=== PATIENT | male | born 1955 | race African-American/Black ===

== ENCOUNTER 2018-04-28 17:20 | Inpatient (IN) | payer MEDICARE, MEDICAID ==
[~2018-04-28] VITALS: Ht 186.7 cm; Wt 98.0 kg
[~2018-04-28 17:20] MED LIST: ATORVASTATIN 40 MG; ENALAPRIL 10 MG; GABAPENTIN 300MG; METFORMIN 500 MG; METOPROLOL; REGULAR INSULIN SQ; TRAZODONE 150 MG; TYLENOL WITH CODEINE
[2018-04-28] MEDS ORDERED: MORPHINE SULFATE 4 MG/ML CPJ (NOT FOR IM USE) IV STA (17:55)
[2018-04-28] MEDS ORDERED: SODIUM CHLORIDE 0.9% 250 ML IV ONE (17:55)
[2018-04-28] MEDS ORDERED: ONDANSETRON HCL 4MG/2ML INJ IV STA (17:55)
[2018-04-28 19:25] LABS: BASOPHILS % 0.3 % (0.0-2.0); HEMATOCRIT. 38.2 % (42.0-52.0); LYMPHOCYTES % 4.8 % (20.0-50.0); MEAN CORPUSCULAR HEMOGLOBIN 30.3 pg (28.0-32.0); MEAN CORPUSCULAR VOLUME 89.5 fL (80.0-94.0); MEAN PLATELET VOLUME 9.9 fl (7.4-10.4); MONOCYTES % 9.3 % (2.0-8.0); NEUTROPHILS % 85.6 % (40.0-76.0); PLATELET 189 x1000/uL (130-400); RED BLOOD CELL COUNT 4.27 mill/uL (4.7-6.1); RED CELL DISTRIBUTION WIDTH 13.6 % (11.6-14.6)
[2018-04-28] MEDS ORDERED: MORPHINE SULFATE 2 MG/ML CPJ (NOT FOR IM USE) IV ONE (19:27)
[2018-04-28] MEDS ORDERED: ONDANSETRON HCL 4MG/2ML INJ ONE (19:28)
[2018-04-28 19:31] LABS: INR 1.1; PARTIAL THROMBOPLASTIN TIME 35.7 sec (23.4-31.0); PROTHROMBIN TIME 11.2 sec (9.1-11.1)
[2018-04-28 19:37] LABS: CHLORIDE 95 mEq/L (98-107)
[2018-04-28 19:41] LABS: ETHANOL BLOOD < 10 mg/dL
[2018-04-28 20:00] VITALS: BP 116/77
[2018-04-28] MEDS ORDERED: FUROSEMIDE 20MG/2ML VIAL IVP ONE (20:00)
[2018-04-28 23:48] VITALS: BP 116/72
[2018-04-29] VITALS (7 sets, daily range): BP systolic 94–134; BP diastolic 54–74
[2018-04-29] MEDS ORDERED: DEXTROSE 50% WATER 50ML SYRINGE IV PRN (01:00)
[2018-04-29] MEDS: ACETAMINOPHEN 325MG TABLET PO PRN ×3 (01:26→21:10)
[2018-04-29] MEDS: PIPERACILLIN/TAZ 3.375G PREMIX 50 ML IV SCH ×4 (03:05→21:09)
[2018-04-29] MEDS: VANCOMYCIN 1500MG in DEXTROSE 5% WATER 250ML IV SCH (04:42)
[2018-04-29] MEDS: BLOOD SUGAR DIAGNOSTIC STRIP TEST SCH ×4 (05:56→21:29)
[2018-04-29] MEDS ORDERED: INFLUENZA VIRUS VACCINE(AFLURIA) 0.5ML SYR IM ONE (06:00)
[2018-04-29] MEDS: INSULIN LISPRO 100 UNITS/ML SUBCUT SCH ×4 (06:22→21:25)
[2018-04-29] MEDS: FUROSEMIDE 40MG TABLET PO SCH (09:08)
[2018-04-29] MEDS: CARVEDILOL 3.125 MG TABLET PO SCH ×2 (09:09→21:10)
[2018-04-29] MEDS: METFORMIN HCL 500MG TABLET PO SCH ×2 (09:09→18:01)
[2018-04-29] MEDS: ENALAPRIL 10MG TABLET PO SCH (09:09)
[2018-04-29] MEDS ORDERED: PNEUMOCOCCAL 23-VAL P-SAC VAC 0.5 ML IM ONE (12:00)
[2018-04-29] MEDS: ATORVASTATIN CALCIUM 40MG TABLET PO SCH (21:09)
[2018-04-29] MEDS: INSULIN GLARGINE UD 100 UNITS/ML SYR SUBCUT SCH (21:27)
[2018-04-29] MEDS ORDERED: INSULIN GLARGINE UD 100 UNITS/ML SYR SUBCUT SCH (22:00)
[2018-04-30] VITALS (7 sets, daily range): BP systolic 85–122; BP diastolic 51–76
[2018-04-30] MEDS: PIPERACILLIN/TAZ 3.375G PREMIX 50 ML IV SCH ×4 (02:38→21:24)
[2018-04-30] MEDS: VANCOMYCIN 1500MG in DEXTROSE 5% WATER 250ML IV SCH (04:00)
[2018-04-30] MEDS: BLOOD SUGAR DIAGNOSTIC STRIP TEST SCH ×4 (06:37→21:26)
[2018-04-30] MEDS: INSULIN LISPRO 100 UNITS/ML SUBCUT SCH ×5 (06:37→21:25)
[2018-04-30] MEDS: METFORMIN HCL 500MG TABLET PO SCH (07:09)
[2018-04-30 07:19] LABS: HEMATOCRIT. 36.2 % (42.0-52.0); HEMOGLOBIN. 12.2 g/dL (14.0-18.0); MEAN CORPUSCULAR VOLUME 88.8 fL (80.0-94.0); MEAN PLATELET VOLUME 10.4 fl (7.4-10.4); PLATELET 172 x1000/uL (130-400); RED BLOOD CELL COUNT 4.07 mill/uL (4.7-6.1); RED CELL DISTRIBUTION WIDTH 13.8 % (11.6-14.6)
[2018-04-30] MEDS: CARVEDILOL 3.125 MG TABLET PO SCH ×2 (09:00→21:23)
[2018-04-30] MEDS: ENALAPRIL 10MG TABLET PO SCH (09:00)
[2018-04-30] MEDS: FUROSEMIDE 40MG TABLET PO SCH (10:47)
[2018-04-30] MEDS: INSULIN GLARGINE UD 100 UNITS/ML SYR SUBCUT SCH ×2 (10:49→21:26)
[2018-04-30 13:32] LABS: PLATELET ESTIMATE NORMAL
[2018-04-30] MEDS: SODIUM CHLORIDE 0.9% 1,000 ML IV SCH (17:36)
[2018-04-30 20:27] LABS: CLARITY URINE CLOUDY (CLEAR); COLOR URINE YELLOW (YELLOW); KETONES URINE NEGATIVE (NEGATIVE); LEUKOCYTE ESTERASE URINE NEGATIVE (NEGATIVE); NITRITE URINE POSITIVE (NEGATIVE); OCCULT BLOOD URINE 2+ (NEGATIVE); PROTEIN URINE 2+ (NEGATIVE); UROBILINOGEN URINE 0.2 E.U./dL (0.2-1.0)
[2018-04-30 20:52] LABS: SODIUM URINE RANDOM 61 mEq/L
[2018-04-30 21:01] LABS: METHADONE URINE SCREEN NEGATIVE (NEGATIVE)
[2018-04-30 21:02] LABS: *AMPHETAMINES SCREEN URINE NEGATIVE (NEGATIVE); *BARBITURATES SCREEN URINE NEGATIVE (NEGATIVE); *BENZODIAZEPINES SCREEN URINE NEGATIVE (NEGATIVE); CANNABINOID URINE SCREEN NEGATIVE (NEGATIVE); OPIATES URINE SCREEN PRESUMTIVE POSITIVE (NEGATIVE); PHENCYCLIDINE URINE SCREEN NEGATIVE (NEGATIVE)
[2018-04-30 21:03] LABS: *COCAINE SCREEN URINE PRESUMTIVE POSITIVE (NEGATIVE)
[2018-04-30] MEDS: ATORVASTATIN CALCIUM 40MG TABLET PO SCH (21:23)
[2018-05-01] VITALS: BP 119/69
[2018-05-01] MEDS ORDERED: ONDANSETRON HCL 4MG/2ML INJ IV PRN (01:15)
[2018-05-01] MEDS: PIPERACILLIN/TAZ 3.375G PREMIX 50 ML IV SCH ×4 (03:50→22:23)
[2018-05-01 04:00] VITALS: BP 120/72
[2018-05-01] MEDS: INSULIN LISPRO 100 UNITS/ML SUBCUT SCH ×7 (06:41→21:00)
[2018-05-01] MEDS: BLOOD SUGAR DIAGNOSTIC STRIP TEST SCH ×4 (06:43→21:00)
[2018-05-01 07:04] LABS: HEMATOCRIT. 35.6 % (42.0-52.0); HEMOGLOBIN. 12.4 g/dL (14.0-18.0); MEAN CORPUSCULAR HEMOGLOBIN 30.9 pg (28.0-32.0); MEAN CORPUSCULAR VOLUME 88.7 fL (80.0-94.0); MEAN PLATELET VOLUME 9.9 fl (7.4-10.4); PLATELET 209 x1000/uL (130-400); RED BLOOD CELL COUNT 4.01 mill/uL (4.7-6.1); RED CELL DISTRIBUTION WIDTH 13.9 % (11.6-14.6)
[2018-05-01 08:00] VITALS: BP 116/60
[2018-05-01 08:15] LABS: PHOSPHORUS 5.3 mg/dL (2.5-4.9)
[2018-05-01] MEDS: CARVEDILOL 3.125 MG TABLET PO SCH ×2 (08:40→22:00)
[2018-05-01] MEDS: SODIUM CHLORIDE 0.9% 1,000 ML IV SCH (10:16)
[2018-05-01] MEDS: INSULIN GLARGINE UD 100 UNITS/ML SYR SUBCUT SCH ×2 (10:17→22:25)
[2018-05-01 12:00] VITALS: BP 94/55
[2018-05-01 15:26] LABS: ATYPICAL LYMPHOCYTES 1
[2018-05-01 15:28] LABS: PLATELET ESTIMATE NORMAL
[2018-05-01 16:00] VITALS: BP 147/81
[2018-05-01] MEDS: OMEPRAZOLE 20MG CAPSULE EXTENDED RELEASE PO SCH (18:17)
[2018-05-01 20:00] VITALS: BP 122/77
[2018-05-01] MEDS: ATORVASTATIN CALCIUM 40MG TABLET PO SCH (22:00)
[2018-05-02] VITALS: BP 115/71
[2018-05-02] MEDS: PIPERACILLIN/TAZ 3.375G PREMIX 50 ML IV SCH ×2 (03:04→09:00)
[2018-05-02 04:00] VITALS: BP 115/71
[2018-05-02] MEDS: BLOOD SUGAR DIAGNOSTIC STRIP TEST SCH ×2 (06:39→12:29)
[2018-05-02] MEDS: OMEPRAZOLE 20MG CAPSULE EXTENDED RELEASE PO SCH (06:42)
[2018-05-02] MEDS: INSULIN LISPRO 100 UNITS/ML SUBCUT SCH ×4 (06:43→12:15)
[2018-05-02 07:05] LABS: HEMATOCRIT. 33.8 % (42.0-52.0); HEMOGLOBIN. 11.4 g/dL (14.0-18.0); MEAN CORPUSCULAR HEMOGLOBIN 29.8 pg (28.0-32.0); MEAN CORPUSCULAR VOLUME 88.7 fL (80.0-94.0); MEAN PLATELET VOLUME 9.5 fl (7.4-10.4); PLATELET 220 x1000/uL (130-400); RED BLOOD CELL COUNT 3.82 mill/uL (4.7-6.1)
[2018-05-02] MEDS: SODIUM CHLORIDE 0.9% 1,000 ML IV SCH (07:35)
[2018-05-02 08:00] VITALS: BP 109/63
[2018-05-02] MEDS: CARVEDILOL 3.125 MG TABLET PO SCH (09:00)
[2018-05-02 09:21] LABS: PHOSPHORUS 3.5 mg/dL (2.5-4.9)
[2018-05-02] MEDS: INSULIN GLARGINE UD 100 UNITS/ML SYR SUBCUT SCH (09:53)
[2018-05-02 11:33] LABS: PLATELET ESTIMATE NORMAL
[2018-05-02 11:55] VITALS: BP 120/72
[2018-05-02 12:00] VITALS: BP 120/72
== END 2018-05-02 13:05 | disposition home or self-care (01) | DRG 871 ==
LOC: ER 17:20 → 5WST 20:00 → EDBEDREQTM 20:09 → EDBEDREQ 20:09 → ENRESERV 22:02
PROVIDERS: ADMIT Internal Medicine; ATTEND Internal Medicine
DX: A41.50 Gram-negative sepsis, unspecified (principal); N17.0 Acute kidney failure with tubular necrosis; E87.1 Hypo-osmolality and hyponatremia; E44.1 Mild protein-calorie malnutrition; I50.22 Chronic systolic (congestive) heart failure; N39.0 Urinary tract infection, site not specified; I42.9 Cardiomyopathy, unspecified; R65.20 Severe sepsis without septic shock; E87.8 Other disorders of electrolyte and fluid balance, not elsewhere classified; E11.51 Type 2 diabetes mellitus with diabetic peripheral angiopathy without gangrene; F17.210 Nicotine dependence, cigarettes, uncomplicated; D64.9 Anemia, unspecified; E78.5 Hyperlipidemia, unspecified; I25.10 Atherosclerotic heart disease of native coronary artery without angina pectoris; I11.0 Hypertensive heart disease with heart failure; B96.89 Other specified bacterial agents as the cause of diseases classified elsewhere; E86.1 Hypovolemia; Z95.0 Presence of cardiac pacemaker; Z82.49 Family history of ischemic heart disease and other diseases of the circulatory system; Z68.28 Body mass index [BMI] 28.0-28.9, adult; Z86.11 Personal history of tuberculosis; I25.2 Old myocardial infarction; Z79.899 Other long term (current) drug therapy
CPT/HCPCS: 36415; 70450; 71045; 74176; 80048; 80053; 80061; 80202; 80305; 81003; 82533; 82550; 82962; 83605; 83690; 83735; 83880; 83935; 84100; 84300; 84443; 84484; 85025; 85610; 85730; 87040; 87077; 87086; 87186; 90686; 93005; 93306; 93970; 96361; 96372; 96374; 96375; 97162; 99285; G0482; J1815; J1940; J2270; J2405; J2543; J3370; J7030; J7040; J7050; J7060

== ENCOUNTER 2018-08-11 23:14 | Inpatient (IN) | payer MEDICARE, MEDICAID ==
[~2018-08-11] VITALS: Ht 185.4 cm; Wt 104.4 kg
[~2018-08-11 23:14] MED LIST changes: -ENALAPRIL 10 MG; -GABAPENTIN 300MG; -METFORMIN 500 MG; -METOPROLOL; -REGULAR INSULIN SQ; -TRAZODONE 150 MG; -TYLENOL WITH CODEINE
[2018-08-12] MEDS ORDERED: ONDANSETRON HCL 4MG/2ML INJ IV STA ×2 (01:18→05:18)
[2018-08-12] MEDS ORDERED: SODIUM CHLORIDE 0.9% 1,000 ML IV ONE (01:18)
[2018-08-12] MEDS ORDERED: MORPHINE SULFATE 4 MG/ML CPJ (NOT FOR IM USE) IV STA (01:18)
[2018-08-12 01:22] LABS: CLARITY URINE CLEAR (CLEAR); COLOR URINE DARK YELLOW (YELLOW); KETONES URINE 1+ (NEGATIVE); LEUKOCYTE ESTERASE URINE NEGATIVE (NEGATIVE); NITRITE URINE NEGATIVE (NEGATIVE); OCCULT BLOOD URINE 2+ (NEGATIVE); PROTEIN URINE 4+ (NEGATIVE); SPECIFIC GRAVITY URINE 1.032 (1.005-1.030); UROBILINOGEN URINE 0.2 E.U./dL (0.2-1.0)
[2018-08-12 01:34] LABS: HEMATOCRIT. 44.5 % (42.0-52.0); HEMOGLOBIN. 14.7 g/dL (14.0-18.0); MEAN CORPUSCULAR HEMOGLOBIN 28.8 pg (28.0-32.0); MEAN CORPUSCULAR VOLUME 87.4 fL (80.0-94.0); MEAN PLATELET VOLUME 9.9 fl (7.4-10.4); PLATELET 227 x1000/uL (130-400); RED BLOOD CELL COUNT 5.09 mill/uL (4.7-6.1); RED CELL DISTRIBUTION WIDTH 15.3 % (11.6-14.6)
[2018-08-12 01:35] LABS: *AMPHETAMINES SCREEN URINE NEGATIVE (NEGATIVE); *BARBITURATES SCREEN URINE NEGATIVE (NEGATIVE); *BENZODIAZEPINES SCREEN URINE NEGATIVE (NEGATIVE); *COCAINE SCREEN URINE PRESUMTIVE POSITIVE (NEGATIVE)
[2018-08-12 01:36] LABS: CANNABINOID URINE SCREEN PRESUMTIVE POSITIVE (NEGATIVE); METHADONE URINE SCREEN NEGATIVE (NEGATIVE); OPIATES URINE SCREEN PRESUMTIVE POSITIVE (NEGATIVE); PHENCYCLIDINE URINE SCREEN NEGATIVE (NEGATIVE)
[2018-08-12 01:41] LABS: CHLORIDE 93 mEq/L (98-107)
[2018-08-12 01:45] LABS: ETHANOL BLOOD < 10 mg/dL
[2018-08-12 01:49] LABS: CREATINE KINASE 218 IU/L (39-308)
[2018-08-12 01:52] LABS: CREATINE KINASE MB FRACTION < 1.0 ng/mL (0.5-3.6)
[2018-08-12 01:53] LABS: INR 1.1; PARTIAL THROMBOPLASTIN TIME 34.5 sec (23.4-31.0)
[2018-08-12] MEDS ORDERED: INSULIN REGULAR (HUMULIN R) 300UNITS/3ML SUBCUT ONE (02:45)
[2018-08-12] MEDS ORDERED: INSULIN REGULAR (HUMULIN R) 300UNITS/3ML SUBCUT NR (03:00)
[2018-08-12] MEDS ORDERED: PANTOPRAZOLE SODIUM 40 MG/VIAL IV ONE (04:00)
[2018-08-12 07:24] LABS: ATYPICAL LYMPHOCYTES 1; PLATELET ESTIMATE NORMAL
[2018-08-12] MEDS ORDERED: NITROGLYCERIN 0.4MG TABLET SL SL PRN (08:45)
[2018-08-12] MEDS ORDERED: DEXTROSE 50% WATER 50ML SYRINGE IV PRN (08:45)
[2018-08-12] MEDS ORDERED: CLONIDINE 0.1MG TABLET PO PRN (08:45)
[2018-08-12] MEDS ORDERED: DOCUSATE SODIUM 100MG CAPSULE PO PRN (08:45)
[2018-08-12] MEDS ORDERED: NA PHOS,M-B/NA PHOS,DI-BA ENEMA 118ML PR PRN (08:45)
[2018-08-12] MEDS ORDERED: ZOLPIDEM TARTRATE 5MG TABLET PO PRN (08:45)
[2018-08-12] MEDS ORDERED: MAGNESIUM/ALUMINUM HYDROXIDE/SIMETHICONE 30ML UDC PO PRN (08:45)
[2018-08-12] MEDS ORDERED: IPRATROPIUM/ALBUTEROL 0.5-3(2.5)MG/3ML NEB INH PRN (08:45)
[2018-08-12] MEDS ORDERED: GUAIFENESIN 200MG/10ML SUGAR FREE UDC PO PRN (08:45)
[2018-08-12] MEDS ORDERED: PANTOPRAZOLE SODIUM 40 MG/VIAL IV SCH (09:00)
[2018-08-12 11:00] VITALS: BP 155/91
[2018-08-12] MEDS ORDERED: ATOR40TA70 PO (11:29)
[2018-08-12] MEDS ORDERED: TAMS0.4C31 PO (11:29)
[2018-08-12] MEDS ORDERED: SPIR25TA6 MT (11:29)
[2018-08-12] MEDS ORDERED: METF-414 MT (11:29)
[2018-08-12] MEDS ORDERED: FURO40TA5 MT (11:29)
[2018-08-12] MEDS ORDERED: AMLO10TA80 MT (11:29)
[2018-08-12] MEDS ORDERED: HYDR-3282 MT (11:29)
[2018-08-12] MEDS ORDERED: ENOXAPARIN 30MG/0.3ML SYR SUBCUT SCH (12:30)
[2018-08-12] MEDS: BLOOD SUGAR DIAGNOSTIC STRIP TEST SCH ×3 (12:54→20:47)
[2018-08-12] MEDS: INSULIN LISPRO 100 UNITS/ML SUBCUT SCH ×3 (13:07→20:48)
[2018-08-12] MEDS: LISINOPRIL 20MG TABLET PO SCH ×2 (13:08→20:46)
[2018-08-12] MEDS: SUCRALFATE 1 G/10 ML UDC PO SCH ×3 (13:08→20:46)
[2018-08-12] MEDS: ONDANSETRON HCL 4MG/2ML INJ IV PRN (13:08)
[2018-08-12] MEDS: DILTIAZEM HCL 60MG TABLET PO SCH ×2 (13:08→17:48)
[2018-08-12] MEDS: METOCLOPRAMIDE 10MG/10 ML UDC PO SCH ×2 (13:08→17:47)
[2018-08-12 16:00] VITALS: BP 110/65
[2018-08-12 17:37] LABS: HEMATOCRIT. 45.3 % (42.0-52.0); HEMOGLOBIN. 14.7 g/dL (14.0-18.0); MEAN CORPUSCULAR HEMOGLOBIN 28.5 pg (28.0-32.0); MEAN CORPUSCULAR VOLUME 88.1 fL (80.0-94.0); MEAN PLATELET VOLUME 10.3 fl (7.4-10.4); PLATELET 223 x1000/uL (130-400); RED BLOOD CELL COUNT 5.15 mill/uL (4.7-6.1); RED CELL DISTRIBUTION WIDTH 15.4 % (11.6-14.6)
[2018-08-12] MEDS: ACETAMINOPHEN 325MG TABLET PO PRN (17:47)
[2018-08-12] MEDS: SODIUM CHLORIDE 0.45% 1,000 ML IV SCH (17:48)
[2018-08-12 18:49] LABS: PLATELET ESTIMATE NORMAL
[2018-08-12 20:00] VITALS: BP 113/60
[2018-08-12] MEDS: PANTOPRAZOLE SODIUM 40 MG/VIAL IV SCH (20:47)
[2018-08-12 21:00] LABS: HEMATOCRIT 41.1 % (42.0-52.0); HEMOGLOBIN 13.4 g/dL (14.0-18.0)
[2018-08-12] MEDS: INSULIN GLARGINE UD 100 UNITS/ML SYR SUBCUT SCH (22:05)
[2018-08-13] VITALS: BP 97/51
[2018-08-13 01:11] LABS: HEMOGLOBIN. 13.6 g/dL (14.0-18.0); MEAN CORPUSCULAR HEMOGLOBIN 28.4 pg (28.0-32.0); MEAN CORPUSCULAR VOLUME 87.8 fL (80.0-94.0); MEAN PLATELET VOLUME 9.9 fl (7.4-10.4); PLATELET 223 x1000/uL (130-400); RED BLOOD CELL COUNT 4.78 mill/uL (4.7-6.1); RED CELL DISTRIBUTION WIDTH 15.6 % (11.6-14.6)
[2018-08-13 01:50] LABS: ATYPICAL LYMPHOCYTES 1
[2018-08-13 01:51] LABS: PLATELET ESTIMATE NORMAL
[2018-08-13 04:00] VITALS: BP 117/67
[2018-08-13] MEDS: DILTIAZEM HCL 60MG TABLET PO SCH ×4 (05:31→17:07)
[2018-08-13] MEDS: SODIUM CHLORIDE 0.45% 1,000 ML IV SCH ×2 (05:45→14:36)
[2018-08-13] MEDS: BLOOD SUGAR DIAGNOSTIC STRIP TEST SCH ×4 (06:15→20:47)
[2018-08-13] MEDS: SUCRALFATE 1 G/10 ML UDC PO SCH ×4 (06:21→20:16)
[2018-08-13] MEDS: METOCLOPRAMIDE 10MG/10 ML UDC PO SCH ×3 (06:22→17:06)
[2018-08-13] MEDS: INSULIN LISPRO 100 UNITS/ML SUBCUT SCH ×4 (06:24→20:55)
[2018-08-13 08:00] VITALS: BP 101/64
[2018-08-13] MEDS: ACETAMINOPHEN 325MG TABLET PO PRN ×2 (08:24→21:28)
[2018-08-13] MEDS: PANTOPRAZOLE SODIUM 40 MG/VIAL IV SCH ×2 (08:25→20:16)
[2018-08-13] MEDS: LISINOPRIL 20MG TABLET PO SCH ×2 (08:29→21:18)
[2018-08-13] MEDS: KETOROLAC 15MG/ML VIAL IV PRN (09:23)
[2018-08-13 12:36] VITALS: BP 95/57
[2018-08-13 16:00] VITALS: BP 96/63
[2018-08-13] MEDS ORDERED: SORBITOL 70% SOLN 30ML PO ONE ×2 (16:00→20:00)
[2018-08-13 16:02] LABS: HEMOGLOBIN 12.7 g/dL (14.0-18.0)
[2018-08-13 16:44] LABS: TOTAL IRON BINDING CAPACITY 334 ug/dL (250-450)
[2018-08-13 16:55] LABS: FOLIC ACID (FOLATE) SERUM 18.9 ng/mL (>5.38)
[2018-08-13 20:00] VITALS: BP 128/69
[2018-08-13] MEDS: ONDANSETRON HCL 4MG/2ML INJ IV PRN (20:15)
[2018-08-13] MEDS ORDERED: PANTOPRAZOLE SODIUM 40 MG/VIAL IV SCH (21:00)
[2018-08-13] MEDS: INSULIN GLARGINE UD 100 UNITS/ML SYR SUBCUT SCH (21:21)
[2018-08-14] VITALS (12 sets, daily range): BP systolic 68–135; BP diastolic 44–80
[2018-08-14] MEDS: SODIUM CHLORIDE 0.45% 1,000 ML IV SCH (04:10)
[2018-08-14] MEDS: ONDANSETRON HCL 4MG/2ML INJ IV PRN (04:39)
[2018-08-14] MEDS: KETOROLAC 15MG/ML VIAL IV PRN ×3 (04:41→21:17)
[2018-08-14] MEDS: DILTIAZEM HCL 60MG TABLET PO SCH ×4 (05:33→18:00)
[2018-08-14 06:00] LABS: PARTIAL THROMBOPLASTIN TIME 37.8 sec (23.4-31.0); PROTHROMBIN TIME 10.3 sec (9.1-11.1)
[2018-08-14 06:22] LABS: HEMATOCRIT 42.3 % (42.0-52.0); HEMOGLOBIN 13.8 g/dL (14.0-18.0)
[2018-08-14] MEDS: METOCLOPRAMIDE 10MG/10 ML UDC PO SCH ×2 (06:22→11:47)
[2018-08-14] MEDS: SUCRALFATE 1 G/10 ML UDC PO SCH ×2 (06:23→11:46)
[2018-08-14] MEDS: BLOOD SUGAR DIAGNOSTIC STRIP TEST SCH ×4 (06:27→20:15)
[2018-08-14] MEDS: INSULIN LISPRO 100 UNITS/ML SUBCUT SCH ×4 (06:36→20:45)
[2018-08-14] MEDS ORDERED: NA PHOS,M-B/NA PHOS,DI-BA ENEMA 118ML PR ONE (07:00)
[2018-08-14] MEDS: LISINOPRIL 20MG TABLET PO SCH ×2 (09:00→20:15)
[2018-08-14] MEDS: PANTOPRAZOLE SODIUM 40 MG/VIAL IV SCH ×2 (09:08→20:36)
[2018-08-14] MEDS ORDERED: FENTANYL CITRATE/PF 50MCG/ML 2ML VIAL ONE (10:43)
[2018-08-14] MEDS ORDERED: MIDAZOLAM HCL 2 MG/2 ML VIAL ONE (10:43)
[2018-08-14] MEDS ORDERED: PROPOFOL 200MG/20ML VIAL IV ONE (10:44)
[2018-08-14] MEDS ORDERED: DIPHENHYDRAMINE 50MG/ML VIAL ONE (10:44)
[2018-08-14] MEDS ORDERED: ONDANSETRON HCL 4MG/2ML INJ ONE (10:44)
[2018-08-14] MEDS ORDERED: LIDOCAINE HCL/PF 1% 10 MG/ML 5ML VIAL ONE (10:45)
[2018-08-14] MEDS ORDERED: SODIUM BICARBONATE 7.5% 0.9 MEQ/ML 50ML SYR IV ONE (15:31)
[2018-08-14] MEDS ORDERED: EPINEPHRINE 0.1MG/ML (1:10,000) 10ML SYR ONE (15:31)
[2018-08-14 16:48] LABS: HEMATOCRIT 42.8 % (42.0-52.0); HEMOGLOBIN 13.9 g/dL (14.0-18.0)
[2018-08-14] MEDS: INSULIN GLARGINE UD 100 UNITS/ML SYR SUBCUT SCH (21:24)
[2018-08-14 23:01] LABS: BG BASE EXCESS -29.7 mmol/L (-2.0-2.0); BG CARBOXYHEMOGLOBIN 0.6 % (0.5-1.5); BG DEOXYHEMOGLOBIN 4.8 % (0.0-5.0); BG FRACTION INSPIRED OXYGEN 100; BG HCO3 ACT 7.6 mmol/L (22.0-26.0); BG METHEMOGLOBIN 0.6 % (0.0-1.5); BG OXYGEN SATURATION 95.1 % (92.0-98.5); BG PCO2 63.4 mmHg (35.0-45.0); BG PH 6.694 (7.350-7.450); BG PO2 136.8 mmHg (75.0-100.0); BG SAMPLE SITE LEFT RADIAL; BG TIDAL VOLUME(mL) 500 mL; BG TOTAL HEMOGLOBIN 14.3 g/dL (12.0-18.0); BG VENT MODE VENT - A/C; BG VENT RATE 14 set
[2018-08-15] MEDS ORDERED: NOREPINEPHRINE 16 MG in DEXT 5% WATER 484 ML IV PRN ×2
[2018-08-15] MEDS ORDERED: IPRATROPIUM/ALBUTEROL 0.5-3(2.5)MG/3ML NEB HHN SCH
[2018-08-15 00:19] VITALS: BP 47/31
[2018-08-15 00:22] VITALS: BP 61/21
[2018-08-15 00:28] VITALS: BP 140/24
[2018-08-15 00:30] LABS: MEAN CORPUSCULAR HEMOGLOBIN 28.6 pg (28.0-32.0); MEAN CORPUSCULAR VOLUME 97.1 fL (80.0-94.0); MEAN PLATELET VOLUME 10.6 fl (7.4-10.4); PLATELET 408 x1000/uL (130-400); RED BLOOD CELL COUNT 2.11 mill/uL (4.7-6.1); RED CELL DISTRIBUTION WIDTH 16.5 % (11.6-14.6)
[2018-08-15 00:34] LABS: HEMATOCRIT. 20.5 % (42.0-52.0); HEMOGLOBIN. 6.1 g/dL (14.0-18.0)
[2018-08-15 00:37] VITALS: BP 130/78
[2018-08-15 02:25] LABS: NUCLEATED RED BLOOD CELLS 1 /100 WBC
[2018-08-15 02:26] LABS: PLATELET ESTIMATE INCREASED
[2018-08-15] MEDS ORDERED: SODIUM BICARBONATE 7.5% 0.9 MEQ/ML 50ML SYR IV ONE (15:01)
[2018-08-15] MEDS ORDERED: ATROPINE SULFATE 1MG/10ML SYR ONE (15:01)
== END 2018-08-15 00:39 | disposition expired | DRG 378 ==
LOC: ER 23:14 → 8WST 08-12 04:13 → SUPCPDRO 08-12 08:36 → ENRESERV 08-12 10:18 → CANRESERV 08-12 10:18 → ENRESERV 08-12 10:24 → CVICU 08-14 22:30
PROVIDERS: ADMIT Internal Medicine; ATTEND Internal Medicine
PROC: 5A12012 Performance of Cardiac Output, Single, Manual (ICD-10-PCS; principal; 2018-08-14)
PROC: 0DJD8ZZ Inspection of Lower Intestinal Tract, Via Natural or Artificial Opening Endoscopic (ICD-10-PCS; 2018-08-14)
PROC: 0BH18EZ Insertion of Endotracheal Airway into Trachea, Via Natural or Artificial Opening Endoscopic (ICD-10-PCS; 2018-08-14)
PROC: 5A1935Z Respiratory Ventilation, Less than 24 Consecutive Hours (ICD-10-PCS; 2018-08-14)
PROC: 0DB78ZX Excision of Stomach, Pylorus, Via Natural or Artificial Opening Endoscopic, Diagnostic (ICD-10-PCS; 2018-08-14)
PROC: 5A12012 Performance of Cardiac Output, Single, Manual (ICD-10-PCS; 2018-08-15)
PROC: 06HY33Z Insertion of Infusion Device into Lower Vein, Percutaneous Approach (ICD-10-PCS; 2018-08-15)
DX: K29.01 Acute gastritis with bleeding (principal); K40.30 Unilateral inguinal hernia, with obstruction, without gangrene, not specified as recurrent; E87.1 Hypo-osmolality and hyponatremia; E11.65 Type 2 diabetes mellitus with hyperglycemia; D64.9 Anemia, unspecified; I11.0 Hypertensive heart disease with heart failure; I50.9 Heart failure, unspecified; K20.9 Esophagitis, unspecified; K44.9 Diaphragmatic hernia without obstruction or gangrene; K64.4 Residual hemorrhoidal skin tags; K64.8 Other hemorrhoids; F12.10 Cannabis abuse, uncomplicated; F14.10 Cocaine abuse, uncomplicated; I46.9 Cardiac arrest, cause unspecified; Z71.51 Drug abuse counseling and surveillance of drug abuser; Z79.84 Long term (current) use of oral hypoglycemic drugs; Z79.899 Other long term (current) drug therapy; I25.2 Old myocardial infarction; Z86.73 Personal history of transient ischemic attack (TIA), and cerebral infarction without residual deficits; Z95.0 Presence of cardiac pacemaker
CPT/HCPCS: 31500; 36415; 36600; 71045; 74176; 78278; 80061; 80305; 82270; 82375; 82550; 82553; 82607; 82728; 82746; 82805; 82962; 83036; 83540; 83550; 83735; 83880; 84484; 85014; 85018; 86677; 86850; 86900; 88305; 88313; 93005; 93306; 93970; 94002; 96361; 96374; 96375; 96376; 97162; 99285; A9560; C9113; G0482; J0461; J1200; J1815; J1885; J2250; J2270; J2405; J2704; J3010; J3490; J7030; J8597